=== PATIENT | female | born 1965 | race Caucasian/White ===

== ENCOUNTER 2018-01-28 14:34 | Emergency (ER) | payer SELFPAY ==
[2018-01-28] MEDS ORDERED: Morphine 4 MG/ML VIAL ONE ×2 (17:26→19:19)
[2018-01-28] MEDS ORDERED: Ondansetron HCl/PF 4 MG/2 ML Vial ONE (17:26)
--- NOTE | 2018-01-28 17:36 | RAD ---
CHEST ONE VIEW: 01/28/18 HISTORY: 52-year-old with history of chest pain, history of hypertension and IN. Heart size is within normal limits. Postop midline sternotomy. No confluent pneumonia, overt edema or pleural effusion. IMPRESSION: Postop midline sternotomy. No significant acute intrathoracic disease. Atherosclerosis of the aorta. POS: YOU
[2018-01-28 17:38] LABS: ALT (SGPT) 50 U/L (8-55); AST (SGOT) 59 U/L (5-34); Albumin 3.9 g/dL (3.5-5.0); Alkaline Phosphatase 98 U/L (40-150); Anion Gap 16 mmol/L (10-20); BUN (Urea Nitrogen) 21 mg/dL (7.0-18.7); Bilirubin, Total 0.8 mg/dL (0.2-1.2); Calc. Creatinine Clearance 0 mL/min (70-130); Calcium 8.9 mg/dL (7.8-10.44); Carbon Dioxide 20 mmol/L (22-29); Chloride 109 mmol/L (98-107); Estimated GFR-MDRD 73; Globulin 3.2 g/dL (2.4-3.5); Glucose 97 mg/dL (70-105); Potassium 5.2 mmol/L (3.5-5.1); Protein, Total 7.1 g/dL (6.0-8.3); Sodium 140 mmol/L (136-145)
[2018-01-28 17:42] LABS: CKMB 0.6 ng/mL (0-6.6); Troponin I Less than 0.010 ng/mL (< 0.028)
[2018-01-28 17:43] LABS: Band 1 % (5-11); Hemoglobin 9.6 g/dL (12.0-16.0); Lymphocytes 29 % (21-51); MDiff Complete? YES; Mean Corpuscular HGB CONC 32.2 g/dL (32.0-36.0); Mean Corpuscular Hemoglobin 36.3 pg (27.0-31.0); Mean Corpuscular Volume 112.6 fL (78.0-98.0); Monocytes 12 % (0-10); Neutrophil 58 % (42-75); Platelet Count 125 thou/uL (130-400); RBC Distribution Width 16.1 % (11.5-14.5); Red Blood Cell (RBC) Count 2.65 mill/uL (4.20-5.40); White Blood Cell (WBC) Count 6.3 thou/uL (4.8-10.8)
== END 2018-01-28 19:29 | disposition short-term general hospital (02) ==
LOC: MADERS 14:34
DX: R07.9 Chest pain, unspecified (principal); M10.9 Gout, unspecified; I25.2 Old myocardial infarction; E03.9 Hypothyroidism, unspecified; E78.5 Hyperlipidemia, unspecified; I10 Essential (primary) hypertension; F41.9 Anxiety disorder, unspecified; I25.10 Atherosclerotic heart disease of native coronary artery without angina pectoris; E66.9 Obesity, unspecified; Z79.899 Other long term (current) drug therapy
CPT/HCPCS: 71045; 80053; 82553; 83880; 84484; 85025; 93005; 94760; 96374; 96375; 96376; J2270; J2405